=== PATIENT | male | born 1975 | race Caucasian/White ===

== ENCOUNTER 2016-05-11 11:33 | Emergency (ER) | payer OTHER ==
[~2016-05-11 11:33] MED LIST: IMDUR ER TAB 3030 MG PO
[2016-05-11 12:49] LABS: HEMOGLOBIN 14.5 gm/dl (14.0-17.5); RED BLOOD COUNT 4.82 M/UL (4.20-5.50); WHITE BLOOD COUNT 10.7 K/UL (4.5-11.0)
[2016-05-11 13:01] LABS: BUN/CREATININE RATIO 15 (0-10)
== END 2016-05-11 17:01 | disposition left against medical advice (07) ==
LOC: ER1 11:33
PROVIDERS: Emergency Medicine
DX: R07.89 Other chest pain (principal); E66.9 Obesity, unspecified; I25.2 Old myocardial infarction; E78.5 Hyperlipidemia, unspecified; F17.210 Nicotine dependence, cigarettes, uncomplicated; Z88.0 Allergy status to penicillin; Z90.49 Acquired absence of other specified parts of digestive tract
CPT/HCPCS: 36415; 71010; 80053; 82550; 82553; 83874; 84484; 85025; 93005; 99285

== ENCOUNTER 2021-02-08 12:55 | Emergency (ER) | payer OTHER | END 2021-02-08 19:32 | disposition left against medical advice (07) | LOC: ER1 12:55 | DX: Z53.21 Procedure and treatment not carried out due to patient leaving prior to being seen by health care provider (principal) ==

== ENCOUNTER 2021-03-17 17:10 | Emergency (ER) | payer OTHER ==
[2021-03-17 18:54] LABS: HEMOGLOBIN 14.7 gm/dl (14.0-17.5); RED BLOOD COUNT 5.13 M/UL (4.20-5.50); WHITE BLOOD COUNT 10.9 K/UL (4.5-11.0)
[2021-03-17 19:16] LABS: BUN/CREATININE RATIO 14 (0-10)
[2021-03-17] MEDS ORDERED: PRILOSEC OTC20 MG PO (20:00)
[2021-03-17] MEDS ORDERED: FAMOTIDINE20 MG PO (20:00)
[2021-03-17] MEDS ORDERED: AMLODIPINE BESYL5 MG PO (20:00)
== END 2021-03-17 20:34 | disposition home or self-care (01) ==
LOC: ER1 17:10
PROVIDERS: Physician Assistant
DX: R07.89 Other chest pain (principal); I11.9 Hypertensive heart disease without heart failure; E78.5 Hyperlipidemia, unspecified; F17.200 Nicotine dependence, unspecified, uncomplicated; Z88.0 Allergy status to penicillin; Z88.5 Allergy status to narcotic agent
CPT/HCPCS: 71045; 80053; 82550; 82553; 83874; 84484; 85025; 93005; 99285